=== PATIENT | female | born 1985 | race Caucasian/White ===

== ENCOUNTER 2024-02-15 08:17 | Emergency (ER) | payer SELFPAY ==
[2024-02-15] VITALS (11 sets, daily range): BP systolic 121–158; BP diastolic 83–104
[~2024-02-15] VITALS: Ht 175.3 cm; Wt 98.0 kg
[~2024-02-15 08:17] MED LIST: AMOXICILLIN500 MG OR; AUGMENTIN875TAB OR; CIPRO500 MG OR; CIPROFLOXACN500 MG PO; FIORICET OR; FLAGYL500 MG OR; FLAGYL500 MG PO; FLEXERIL PO; KEFLEX500 MG PO; MOTRIN800 MG PO; NO; NO HOME MEDS; PYRIDIUM200 MG PO; ROCEPHIN 1 GM1 GM IM; SUMATRIPTAN25 MG PO; TOBRAMYCIN0.3 % OD; TRAMADOL HYDROC50 MG PO; TYLENOL # 31 TA1 PO
[2024-02-15] MEDS ORDERED: ASPIRIN 81 MG/TAB PO ONE (08:40)
[2024-02-15] MEDS ORDERED: LIDOCAINE VISCOUS 2% 15 ML UDC PO ONE (08:45)
[2024-02-15] MEDS ORDERED: ALUM & MAG HYDROX-SIMETHICONE 30 ML PO ONE (08:45)
[2024-02-15 09:13] LABS: BASO% 0.6 % (0-3); EOS% 1.5 % (0-8); IMMATURE GRANULOCYTES 0.3 % (0.0-5.0); LYMPH% 26.8 % (15-41); MEAN CELL VOLUME 84.9 fL CALC (80.0-100.0); MEAN CORPUSCULAR HGB 28.4 pG CALC (26.0-32.0); MEAN CORPUSCULAR HGB CONC 33.4 g/dL CAL (32.0-36.0); NEUT# 4.53 thou/uL (2.00-7.15); NEUT% 62.8 % (42-76); RED BLOOD COUNT 5.04 mill/uL (4.20-5.60); RED CELL DISTRI WIDTH 12.2 % (11.5-15.5)
[2024-02-15 09:21] LABS: HEMATOCRIT 42.8 % (37.0-47.0); HEMOGLOBIN 14.3 g/dl (12.0-16.0)
[2024-02-15 09:23] LABS: ALKALINE PHOSPHATASE 66 u/l (38-126); ANION GAP 11 (6-22 (CALC)); BUN 10 mg/dL (7-17); BUN/CREATININE RATIO 15 (12-20 (CALC)); CARBON DIOXIDE 25 mmol/l (22-30); CHLORIDE 109 mmol/l (95-108); CREATININE 0.7 mg/dL (0.5-1.0); ESTIMATED GFR 113 ML/MIN (>=90 (CALC)); POTASSIUM 3.8 mmol/l (3.5-5.1); SODIUM 140 mmol/l (137-146)
[2024-02-15 09:25] LABS: ALBUMIN 4.7 g/dL (3.2-5.0); BILIRUBIN, TOTAL 0.5 mg/dL (0.02-1.3); SGOT/AST 32 u/l (14-36); TOTAL PROTEIN 8.3 g/dL (6.3-8.2)
[2024-02-15] MEDS ORDERED: PROTONIX40 M2 PO (10:07)
== END 2024-02-15 10:30 | disposition home or self-care (01) | DRG 313 ==
LOC: ED 08:17
PROVIDERS: Family Medicine
DX: R07.9 Chest pain, unspecified (principal); I10 Essential (primary) hypertension; Z87.11 Personal history of peptic ulcer disease; Z87.891 Personal history of nicotine dependence